=== PATIENT | female | born 1965 | race African-American/Black ===

== ENCOUNTER 2018-05-03 12:13 | Observation (INO) ==
--- NOTE | 2018-05-03 12:47 | ED ---
HPI General Chief complaint: Abdominal Pain Stated complaint: Abd pain Time Seen by Provider: 05/03/18 12:52 History of Present Illness HPI narrative: There is a 53-year-old female with history of HIV, hypertension and previous episode of "early appendicitis" presents the ED today for unbearable abdominal pain since this morning. Ports the pain woke her up at 7 AM with accompanying nausea and vomiting. The pain is locally located periumbilically and does not radiate. It is a 10 out of 10 pain. She had one bowel movement this morning which was normal. She reports associated fevers and chills but denies any chest pain, shortness of breath, urinary changes, diarrhea, or anorexia. She does not have any alleviating or worsening factors. She last ate last night with no issue. She has history of similar symptoms in the past. She was seen in the ER on April [address] scan revealed an abnormal appearance of the distal appendix that was concerning for early or mid tip appendicitis. The time surgery was offered however the patient refused and signed out AMA. She was given a prescription for Augmentin which she reports she finished. One week later on April 09 she was seen again for similar symptoms. During this visit she had a normal CBC and a CT abdomen pelvis which demonstrated no stranding or inflammation of the appendix. Related Data Home Medications Medication Instructions Recorded Confirmed dolutegravir [Tivicay] 10 mg PO DAILY 04/09/18 05/03/18 emtricitabine-tenofovir alafen 1 tab PO DAILY 04/09/18 05/03/18 [Descovy] lisinopril 5 mg PO DAILY 04/09/18 05/03/18 Allergies Allergy/AdvReac Type Severity Reaction Status Date / Time No Known Allergies Allergy Verified 05/03/18 12:37 Review of Systems Constitutional Reports chills and Reports fever(s) ENT Denies headache(s) and Denies sore throat Cardiovascular Denies chest pain, Denies syncope and Denies palpitations Respiratory Denies cough and Denies dyspnea Gastrointestinal Reports abdominal pain, Denies change in stool character, Denies diarrhea, Reports nausea and Reports vomiting Genitourinary Denies urinary frequency, Denies urinary hesitancy and Denies urinary urgency Musculoskeletal Denies myalgias and Denies arthralgias Integumentary/Breasts Denies rash Neurologic Denies numbness and Denies tingling PMFSH Medical History Medical History HTN (hypertension) (Acute) HIV disease (Acute) Heart murmur (Acute) Surgical History Surgical History H/O tubal ligation (Acute) Social History Social History Substance History: Active Abuse Second Hand Smoke Exposure: No Smoking Status: Never smoker How Often Do You Have a Drink Containing Alcohol: 2 to 4 times a month Recent Travel in [facility] within the Last 8 Weeks: No Recent Out of Country Travel within the Last 8 Weeks: No Substance Abuse Detail Marijuana: Substance Use Status: Active Immunization History Tetanus Immunization: Unsure Exam Narrative Exam Narrative: GENERAL: Mildly ill-appearing, anxious thin -Slov[place] female in no acute distress SKIN: Focused skin assessment warm/dry. HEAD: Atraumatic. Normocephalic. EYES: Pupils equal and round. No scleral icterus. No injection or drainage. ENT: No nasal bleeding or discharge. Mucous membranes pink and moist. NECK: Trachea midline. No JVD. CARDIOVASCULAR: Regular rate and rhythm. 3/6 holosystolic murmur heard best at the cardiac apex RESPIRATORY: No accessory muscle use. Clear to auscultation. Breath sounds equal bilaterally. GASTROINTESTINAL: Soft nondistended abdomen with tenderness to palpation of the periumbilical and suprapubic areas with rebound. No guarding MUSCULOSKELETAL: No obvious deformities. No clubbing. No cyanosis. No edema. NEUROLOGICAL: Awake and alert. No obvious cranial nerve deficits. Motor grossly within normal limits. Normal speech. PSYCHIATRIC: Appropriate mood and affect; insight and judgment normal. Course Initial Documented Vital Signs Temperature 97.5 F L 05/03/18 12:16 Pulse Rate 63 05/03/18 12:16 Respiratory Rate 16 05/03/18 12:16 Blood Pressure 221/84 H 05/03/18 12:16 Pulse Oximetry 95 05/03/18 12:16 Last Documented Vital Signs Temperature 97.5 F L 05/03/18 12:16 Pulse Rate 60 05/03/18 17:47 Respiratory Rate 16 05/03/18 17:47 Blood Pressure 168/72 H 05/03/18 17:47 Pulse Oximetry 99 05/03/18 17:47 Medical Decision Making MDM Narrative Medical decision making narrative: Ms. Monsalve is a 53-year-old female with history of HIV, hypertension, previous chronic "early appendicitis episode "who presented to the ED today from home complaining of severe abdominal pain and nausea as of this morning. Ports the pain woke her up out of bed and is 10 out of 10. She reports associated nausea and vomiting 3 times, once in the ED. She reports associated fevers and chills, but denied any chest pain, shortness of breath, lightheadedness, syncope, diarrhea, urinary changes, or anorexia. She had a similar episode in the past and has been seen twice in the ED for the symptoms. First time was on April 01 during which she had a CT scan that revealed possible early appendicitis. She was offered surgery at that time, however she refused and signed out AMA. She was instead given a prescription for Augmentin which she says she completed. On April 09 she returned to the ED for similar symptoms but had no evidence of appendicitis on laboratory or imaging studies. Upon arrival her vital signs were blood pressure of 221/84, temperature 97.5, HR 63, RR 16, pulse ox 97% on room air. Repeat blood pressure in her room was 209/87. On exam this patient was mildly ill-appearing and anxious however she was in no acute distress. Cardiac exam revealed a 3 out of 6 holosystolic murmur heard best at the cardiac apex. She says this is baseline. Poor exam was clear to auscultation bilaterally abdominal exam revealed a soft nondistended abdomen with tenderness to palpation of the periumbilical and suprapubic areas with rebound. There is no guarding. IV access was obtained and the patient was placed on cardiac monitoring. 4 mg IV morphine was given for pain management and 10 mg prochlorperazine IV was given for nausea and vomiting control. 2 mg IV hydralazine was given for blood pressure control. CBC, CMP, lipase, and UA were ordered. A CT abdomen pelvis with IV and oral contrast was ordered as well. She was placed on n.p.o. status pending laboratory and imaging evaluation. Results are as follows: CBC was without any leukocytosis or anemia or significant platelet abnormality CMP revealed mildly elevated creatinine of 1.03 decreased GFR 68 both are stable with prior studies. Potassium was also decreased at 3.2 Urinalysis revealed large occult blood with 18 RBCs, with no WBCs or bacteria. Culture was not indicated Lipase was within normal limits CT abdomen pelvis revealed prominent uterus with multiple leiomyomas and unremarkable gallbladder, appendix, and bladder. Due this patient is intractable abdominal pain and vomiting with no obvious source, patient will be admitted to hospitalist for further evaluation. Medical Screen Exam Complete: Yes Emergency Medical Condition: Yes Differential Diagnosis Differential Diagnosis: Sinus versus cholecystitis versus gastroenteritis versus colitis versus UTI versus nephrolithiasis Lab Data Result diagrams: 05/03/18 13:07 05/03/18 13:07 POC Results POC Urine Results Negative Lab Results 05/03/18 05/03/18 05/03/18 Range/Units 12:35 13:07 13:07 WBC 6.5 (4.0-11.0) th/mm3 RBC 4.04 (4.00-5.30) mil/mm3 Hgb 13.9 (11.6-15.3) gm/dL Hct 39.7 (35.0-46.0) % MCV 98.2 (80.0-100.0) fL MCH 34.3 H (27.0-34.0) pg MCHC 35.0 (32.0-36.0) % RDW 12.7 (11.6-17.2) % Plt Count 143 L (150-450) th/mm3 MPV 10.4 (7.0-11.0) fL Neut % (Auto) 65.7 (16.0-70.0) % Lymph % (Auto) 26.8 (9.0-44.0) % [place] % (Auto) 5.3 (0.0-8.0) % Eos % (Auto) 1.7 (0.0-4.0) % Baso % (Auto) 0.5 (0.0-2.0) % Neut # (Auto) 4.3 (1.8-7.7) th/mm3 Lymph # (Auto) 1.7 (1.0-4.8) th/mm3 [place] # (Auto) 0.3 (0.0-0.9) th/mm3 Eos # (Auto) 0.1 (0.0-0.4) th/mm3 Baso # (Auto) 0.0 (0.0-0.2) th/mm3 WBC Differential . Differential Comment Auto diff final Sodium 141 (136-145) meq/L Potassium 3.2 L (3.5-5.1) meq/L Chloride 107 (98-107) meq/L Carbon Dioxide 26.2 (21.0-32.0) meq/L Anion Gap 8 (5-15) meq/L BUN 16 (7-18) mg/dL Creatinine 1.03 H (0.50-1.00) mg/dL Estimated GFR 68 L (>89) mL/min Random Glucose 108 H (74-106) mg/dL Calcium 9.9 (8.5-10.1) mg/dL Total Bilirubin 0.6 (0.2-1.0) mg/dL AST 23 (15-37) U/L ALT 20 (10-53) U/L Alkaline Phosphatase 95 (45-117) U/L Total Protein 9.2 H (6.4-8.2) g/dL Albumin 4.5 (3.4-5.0) g/dL Lipase 76 (73-393) U/L Urine Color Yellow (Yellw/Straw) Urine Clarity Hazy H (Clear) Urine pH 6.0 (5.0-8.5) Ur Specific [place] 1.025 (1.002-1.035) Urine Protein 30 H (Neg-Trace) mg/dL Urine Glucose (UA) Negative (Negative) mg/dL Urine Ketones Negative (Negative) mg/dL Urine Occult Blood Large H (Negative) Urine Nitrate Negative (Negative) Urine Bilirubin Negative (Negative) Urine Urobilinogen Less than 2 (Less than 2) mg/dL Ur Leukocyte Esterase Negative (Negative) Urine RBC 18 H (0-3) /hpf Urine WBC 1 (0-5) /hpf Ur Squamous Epith Cells 2 (0-5) /hpf Urine Bacteria Rare H (None) /hpf Urine Mucus Many H (Occasional) /lpf Micro UA Comment Culture not ind Ur Microscopic Review Not Reportable Urine Culture Comments Culture not ind Imaging Data Radiologist's impression: Abdomen/Pelvis CT 05/03/18 12:57 CONCLUSION: 1. Prominent uterus with multiple leiomyomata. 2. Unremarkable bowel gas pattern. 3. Unremarkable gallbladder. Discharge Plan Discharge Disposition Patient Disposition: ED Admit(ED Internal Use Only) Discharge Order Discharge Orders: ED Use Only Admit Order (Routine); Ordered 05/03/18 Ordered By: Vishal Sanabria Discharge Details Diagnosis: Intractable nausea and vomiting, Abdominal pain, HIV (human immunodeficiency virus infection), Systolic murmur, Hypokalemia Physicians Team ED Provider: Vishal Sanabria Primary Care Provider: UNKNOWN, Attending Provider: Cuauhtemoc Faith Discharge Interventions Interventions: Vital Signs Last Done: 05/03/18 17:47 Status ED Status: Admitted Observation Patient
[2018-05-03] MEDS ORDERED: Morphine Inj 4 MG/ML Vial IV.PUSH ONE (12:57)
[2018-05-03] MEDS ORDERED: Diatrizoate Meglum/Diatrizoate Sod Liq 9 ML UDC PO ONE (12:57)
[2018-05-03] MEDS ORDERED: hydrALAZINE HCl Inj 20 MG/ML Vial IV.PUSH ONE (13:10)
[2018-05-03 13:40] LABS: Baso % (Auto) 0.5 % (0.0-2.0); Eos # (Auto) 0.1 th/mm3 (0.0-0.4); Eos % (Auto) 1.7 % (0.0-4.0); Hematocrit 39.7 % (35.0-46.0); Hemoglobin 13.9 gm/dL (11.6-15.3); Lymph # (Auto) 1.7 th/mm3 (1.0-4.8); Lymph % (Auto) 26.8 % (9.0-44.0); Mean Corpuscular Hemoglobin 34.3 pg (27.0-34.0); Mean Corpuscular Volume 98.2 fL (80.0-100.0); Mean Platelet Volume 10.4 fL (7.0-11.0); Mono # (Auto) 0.3 th/mm3 (0.0-0.9); Mono % (Auto) 5.3 % (0.0-8.0); Neut # (Auto) 4.3 th/mm3 (1.8-7.7); Neut % (Auto) 65.7 % (16.0-70.0); Platelet Count 143 th/mm3 (150-450); Red Blood Count 4.04 mil/mm3 (4.00-5.30); Red Cell Distribution Width 12.7 % (11.6-17.2); White Blood Count 6.5 th/mm3 (4.0-11.0)
[2018-05-03 14:02] LABS: Albumin 4.5 g/dL (3.4-5.0); Anion Gap 8 meq/L (5-15); Aspartate Aminotransferase 23 U/L (15-37); Blood Urea Nitrogen 16 mg/dL (7-18); Calcium 9.9 mg/dL (8.5-10.1); Carbon Dioxide 26.2 meq/L (21.0-32.0); Chloride 107 meq/L (98-107); Glomerular Filtration Rate 68 mL/min (>89); Glucose,Random 108 mg/dL (74-106); Lipase 76 U/L (73-393); Potassium 3.2 meq/L (3.5-5.1); Sodium 141 meq/L (136-145)
[2018-05-03 14:04] LABS: Bacteria,Urine Rare /hpf; Bilirubin,Urine Negative (Negative); Clarity,Urine Hazy (Clear); Color,Urine Yellow (Yellw/Straw); Glucose,Urine (UA) Negative (Negative); Leukocyte Esterase,Urine Negative (Negative); Mucus,Urine Many /lpf (Occasional); Nitrite,Urine Negative (Negative); Specific Gravity,Urine 1.025 (1.002-1.035); Squamous Epithelial Cell,Urine 2 /hpf (0-5)
[2018-05-03 14:05] LABS: Alanine Aminotransferase 20 U/L (10-53); Alkaline Phosphatase 95 U/L (45-117); Total Protein 9.2 g/dL (6.4-8.2)
--- NOTE | 2018-05-03 16:20 | CT ---
EXAM DATE: 05/03/2018 4:12 PM EST AGE/SEX: 53 years / Female INDICATIONS: Abdominal pain. CLINICAL DATA: This is the patient's initial encounter. Patient reports that signs and symptoms have been present for 1 day and indicates a pain score of 10/10. MEDICAL/SURGICAL HISTORY: Hypertension. HIV. Tubal ligation. ORAL CONTRAST: Partial prescribed oral contrast ingested. RADIATION DOSE: 7.14 CTDI (mGy) COMPARISON: [facility] [place], CT ABDOMEN & PELVIS W CONTRAST, 04/09/2018. . TECHNIQUE: Multiple contiguous axial images were obtained through the abdomen and pelvis following b olus infusion of 90 ml Omnipaque 350 (iohexol) nonionic water-soluble contrast as a single exam dos e. Partial prescribed oral contrast ingested. Using automated exposure control and adjustment of the mA and/or kV according to patient size, radiation dose was kept as low as reasonably achievable to o btain optimal diagnostic quality images. DICOM format image data is available electronically for rev iew and comparison. FINDINGS: Lower Lungs: The visualized lower lungs are clear. Liver: The liver has a homogeneous density without space-occupying lesion. There is no dilation of th e biliary tree. The gallbladder remains unremarkable. Spleen: Homogeneous density without enlargement. Pancreas: Unremarkable without mass or calcification. Kidneys: Normal in size and shape. No evidence of mass or hydronephrosis. Adrenal Glands: Unremarkable. Aorta: The aorta and proximal iliac vessels are grossly unremarkable without aneurysmal dilation. Bowel/Mesentery: No oral contrast was given limiting the sensitivity of the exam. The bowel loops ar e grossly unremarkable. The cecum and sigmoid colon have a normal configuration. Abdominal Wall: Intact. Retroperitoneum: No evidence of adenopathy in the retrocrural, para-aortic, or deep pelvic regions. Bladder: Contours are smooth. Reproductive Organs: Uterus remains mildly prominent and lobular with multiple ill-defined enhancing mass like areas consistent with leiomyomata. Inguinal: The inguinal region is unremarkable without evidence of adenopathy. Bony Structures: Unremarkable. CONCLUSION: 1. Prominent uterus with multiple leiomyomata. 2. Unremarkable bowel gas pattern. 3. Unremarkable gallbladder. Electronically signed by: David Jorgensen MD 05/03/2018 4:18 PM EST
[2018-05-03] MEDS ORDERED: Bisacodyl 10 MG Supp RECTAL PRN (16:43)
[2018-05-03] MEDS ORDERED: Morphine Sulfate Inj 2 MG/ML Vial IV.PUSH PRN (17:12)
--- NOTE | 2018-05-03 17:15 | P.HPIM ---
History of Present Illness History of Present Illness: And hepatitis C who presentsPatient is a 53-year- old female with past medical history of HIV with acute onset abdominal pain times 1 day. Patient reports being in usual state of health prior to development of symptoms on the morning of presentation to the hospital. Patient reports the pain is severe, 10/10, and located in epigastric region without radiation. No aggravating factors endorsed by patient. No alleviating factors other than pain medication received in the emergency department. Patient reports associated nausea, vomiting, chills. Review of systems negative for diarrhea, constipation, bright red blood per rectum, melena, hematemesis, fever, recent travel, abdominal bloating, rash over the abdominal region, trauma, chest pain, palpitations, or back pain. Of note patient does report that she recently used marijuana the night before presenting to the emergency department. Patient with past surgical history of tubal ligation in 1990 otherwise no abdominal surgeries. No new medications as per patient. No recent antibiotic use. Emergency department lab work unremarkable except for potassium 3.2. No white blood cell count. Lipase level normal. Patient with CT abdomen without acute finding. In past patient was noted to have appendicitis but no evidence of fat stranding a white blood cell count or fever during ED evaluation. Patient received antinausea medication but continues to have multiple episodes of emesis. Diagnosis (1) Abdominal pain: (2) HIV (human immunodeficiency virus infection): (3) Systolic murmur: (4) Marijuana smoker: (5) Hypertension: (6) Hypokalemia: (7) Emesis: (8) Cyclic vomiting syndrome: [facility] Medical History Medical History HTN (hypertension) (Acute) HIV disease (Acute) Heart murmur (Acute) Surgical History Surgical History H/O tubal ligation (Acute) Social History Social History Substance History: Active Abuse Second Hand Smoke Exposure: No Smoking Status: Never smoker How Often Do You Have a Drink Containing Alcohol: 2 to 4 times a month Recent Travel in [facility] within the Last 8 Weeks: No Recent Out of Country Travel within the Last 8 Weeks: No Substance Abuse Detail Marijuana: Substance Use Status: Active Immunization History Tetanus Immunization: Unsure Medications and Allergies Allergies Allergy/AdvReac Type Severity Reaction Status Date / Time No Known Allergies Allergy Verified 05/03/18 12:37 Home Medications Medication Instructions Recorded Confirmed Type dolutegravir [Tivicay] 10 mg PO DAILY 04/09/18 05/03/18 History emtricitabine-tenofovir alafen 1 tab PO DAILY 04/09/18 05/03/18 History [Descovy] lisinopril 5 mg PO DAILY 04/09/18 05/03/18 History Active Medications: Active Medications Al Hydroxide/Mg Hydroxide (Milk Of Jalen Lijonah) 30 ml PO Q12H PRN PRN Reason: Mild Constipation Bisacodyl (Dulcolax Supp) 10 mg RECTAL DAILY PRN PRN Reason: SEVERE CONSITIPATION Enalaprilat (Vasotec Inj) 2.5 mg IV.PUSH Q6H PRN PRN Reason: SBP>160, DBP>90 Enoxaparin Sodium (Lovenox Inj) 30 mg SQ Q24H [facility] Sodium Chloride (Ns Inj) 1,000 mls @ 100 mls/hr IV.CONT .Q10H BRISA Potassium Chloride (Kcl 20 Meq Premix Inj) 20 meq in 100 mls @ 50 mls/hr IV.SIG Q2H BRISA Stop: 05/03/18 20:59 Acetaminophen (Ofirmev Inj) 1,000 mg in 100 mls @ 400 mls/hr IV.SIG Q6H PRN PRN Reason: PAIN SCALE 1 TO 10 Lisinopril (Prinivil) 5 mg PO DAILY [facility] Metoclopramide HCl (Reglan Inj) 5 mg IV.PUSH Q6HR PRN; Protocol PRN Reason: NAUSEA OR VOMITING Morphine Sulfate (Morphine Inj) 2 mg IV.PUSH Q6HR PRN PRN Reason: BREAKTHROUGH PAIN Non-Formulary Medication (Dolutegravir [Tivicay]) 10 mg PO DAILY [facility] Non-Formulary Medication (Emtricitabine-Tenofovir Alafen [Descovy]) 1 tab PO DAILY [facility] Ondansetron HCl (Zofran Inj) 4 mg IV.PUSH Q6H PRN PRN Reason: NAUSEA OR VOMITING Senna/Docusate Sodium (Vannessa-Colace) 1 tab PO BID [facility] Sennosides (Senokot) 17.2 mg PO Q12H PRN PRN Reason: Moderate Constipation Sodium Chloride (Ns Flush) 2 ml IV.FLUSH PRN PRN PRN Reason: FLUSH AFTER USING IV ACCESS Sodium Chloride (Ns Flush) 2 ml IV.FLUSH BID [facility]ISA Sodium Chloride (Ns Flush) 2 ml IV.FLUSH PRN PRN PRN Reason: FLUSH AFTER USING IV ACCESS Physical Exam Vital signs: Last Vital Signs Temp 97.5 F L 05/03/18 12:16 Pulse 67 05/03/18 15:50 Resp 20 05/03/18 15:50 BP 177/73 H 05/03/18 14:10 Pulse Ox 100 05/03/18 15:50 Intake & Output 05/01/18 05/02/18 05/03/18 05/04/18 06:59 06:59 06:59 06:59 Weight 77.111 kg General: No acute distress, appears uncomfortable HEENT: EOMI Cardiovascular: Systolic murmur Respiratory: Clear to auscultation anteriorly and posteriorly Gastrointestinal: Soft, tender to palpation in epigastric region and left upper quadrant. Negative Adams sign. Positive bowel sounds. No rebound but guarding with deep palpation. Extremity: 2+ radial pulse. No edema lower extremity. No calf tenderness lower extremity Results Labs CBC & Chem 7: 05/03/18 13:07 05/03/18 13:07 Imaging Impressions Abdomen/Pelvis CT 05/03/18 12:57 CONCLUSION: 1. Prominent uterus with multiple leiomyomata. 2. Unremarkable bowel gas pattern. 3. Unremarkable gallbladder. Caprini VTE Risk Assessment Caprini VTE Risk Assessment: Moderate/High Risk (score >= 2) Caprini Risk Assessment Model: Point Value = 1 Point Value = 2 Point Value = 3 Point Value = 5 Age 41-60 Minor surgery BMI > 25 kg/m2 Swollen legs Varicose veins or History of unexplained or recurrent spontaneous Oral contraceptives or hormone replacement Sepsis (< 1 month) Serious lung disease, including pneumonia (< 1 month) Abnormal pulmonary function Acute myocardial infarction Congestive heart failure (< 1 month) History of inflammatory bowel disease Medical patient at bed rest Age 61-74 Arthroscopic surgery Major open surgery (> 45 min) Laparoscopic surgery (> 45 min) Malignancy Confined to bed (> 72 hours) Immobilizing plaster cast Central venous access Age >= 75 History of VTE Family history of VTE Factor V Leiden Prothrombin [id number] Lupus anticoagulant Anticardiolipin antibodies Elevated serum homocysteine Heparin-induced thrombocytopenia Other congenital or acquired thrombophilia Stroke (< 1 month) Elective arthroplasty Hip, pelvis, or leg fracture Acute spinal cord injury (< 1 month) Prophylaxis Regimen: Total Risk Factor Score Risk Level Prophylaxis Regimen 0-1 Low Early ambulation 2 Moderate Order ONE of the following: *Sequential Compression Device (SCD) *Heparin 5000 units SQ BID 3-4 Higher Order ONE of the following medications: *Heparin 5000 units SQ TID *Enoxaparin/Lovenox 40 mg SQ daily (WT < 150 kg, CrCl > 30 mL/min) *Enoxaparin/Lovenox 30 mg SQ daily (WT < 150 kg, CrCl > 10-29 mL/min) *Enoxaparin/Lovenox 30 mg SQ BID (WT < 150 kg, CrCl > 30 mL/min) AND/OR *Sequential Compression Device (SCD) 5 or more Highest Order ONE of the following medications: *Heparin 5000 units SQ TID (Preferred with Epidurals) *Enoxaparin/Lovenox 40 mg SQ daily (WT < 150 kg, CrCl > 30 mL/min) *Enoxaparin/Lovenox 30 mg SQ daily (WT < 150 kg, CrCl > 10-29 mL/min) *Enoxaparin/Lovenox 30 mg SQ BID (WT < 150 kg, CrCl > 30 mL/min) AND *Sequential Compression Device (SCD) Assessment and Plan (1) Abdominal pain: Code(s): R10.9 - Unspecified abdominal pain Status: Acute (2) HIV (human immunodeficiency virus infection): Code(s): B20 - Human immunodeficiency virus [HIV] disease Status: Acute (3) Systolic murmur: Code(s): R01.1 - Cardiac murmur, unspecified Status: Acute (4) Marijuana smoker: Code(s): F12.90 - Cannabis use, unspecified, uncomplicated Status: Acute (5) Hypertension: Code(s): I10 - Essential (primary) hypertension Status: Acute (6) Hypokalemia: Code(s): E87.6 - Hypokalemia Status: Acute (7) Emesis: Code(s): R11.10 - Vomiting, unspecified Status: Acute (8) Cyclic vomiting syndrome: Code(s): G43.A0 - Cyclical vomiting, not intractable Status: Acute Plan Patient is a 53-year-old female with past medical history of hypertension, HIV, and hepatitis C presenting with acute onset abdominal pain in the setting of elevated blood pressure and recent marijuana use concerning for cyclic vomiting syndrome versus hypertensive emergency. Gastroenterology: History of hepatitis C, abdominal pain -Given patient with symptoms shortly after smoking marijuana suspect that her nausea and vomiting may be symptoms of cyclic vomiting syndrome in the setting of marijuana use. IV fluid hydration supplemented with potassium for potassium of 3.2 CT abdomen reviewed. No acute findings Lipase negative for evidence of pancreatitis. No recent alcohol use endorsed per patient. No history of stones. History negative for autoimmune disorders. No trauma endorsed by patient. No evidence of ileus on imaging study. Pain control off from F 1 g every 6 hours with morphine 2 mg breakthrough Reglan for nausea Upon discharge from hospital patient should follow-up outpatient with PMD to arrange for colonoscopy for routine health maintenance screening. Patient does not appear to have a surgical abdomen at this time based on physical examination as well as no evidence of free air on imaging. We will not consult surgery Cardiology: Hypertension While n.p.o. we will use Vasotec 2.5 mg as needed as needed When tolerating p.o. diet continue lisinopril 5 mg p.o. daily Infectious disease: HIV Resume home medications when tolerating p.o. diet CODE STATUS: Full code DVT prophylaxis Disposition: Observation status. Anticipate discharge in 24 hours Diet: N.p.o. with fluids
[2018-05-03] MEDS: Sod Chloride 0.9% Inj 1,000 ML IV.CONT SCH (17:59)
[2018-05-03] MEDS: Potassium Chlor 20 mEq Premix 20 MEQ/100 ML PIGGYBACK IV.SIG SCH ×2 (17:59→21:42)
[2018-05-03] MEDS ORDERED: Enoxaparin Inj 30 MG/0.3 ML Syringe SQ SCH (18:00)
[2018-05-03] MEDS: Senna/Docusate Sodium 8.6/50 MG Tablet PO SCH (21:21)
[2018-05-04] MEDS: Sod Chloride 0.9% Inj 1,000 ML IV.CONT SCH (04:31)
[2018-05-04 07:59] LABS: Baso % (Auto) 0.6 % (0.0-2.0); Eos # (Auto) 0.1 th/mm3 (0.0-0.4); Eos % (Auto) 1.5 % (0.0-4.0); Hematocrit 34.4 % (35.0-46.0); Hemoglobin 11.6 gm/dL (11.6-15.3); Lymph # (Auto) 1.6 th/mm3 (1.0-4.8); Lymph % (Auto) 33.4 % (9.0-44.0); Mean Corpuscular HGB Conc 33.8 % (32.0-36.0); Mean Corpuscular Hemoglobin 32.9 pg (27.0-34.0); Mean Corpuscular Volume 97.3 fL (80.0-100.0); Mean Platelet Volume 10.5 fL (7.0-11.0); Mono # (Auto) 0.4 th/mm3 (0.0-0.9); Mono % (Auto) 7.7 % (0.0-8.0); Neut # (Auto) 2.8 th/mm3 (1.8-7.7); Neut % (Auto) 56.8 % (16.0-70.0); Platelet Count 118 th/mm3 (150-450); Red Blood Count 3.54 mil/mm3 (4.00-5.30); Red Cell Distribution Width 12.7 % (11.6-17.2); White Blood Count 4.9 th/mm3 (4.0-11.0)
[2018-05-04 08:05] LABS: INR 1.1 Ratio; Prothrombin Time 11.4 sec (9.8-11.6)
[2018-05-04] MEDS: Senna/Docusate Sodium 8.6/50 MG Tablet PO SCH (08:23)
[2018-05-04 08:42] LABS: Albumin 3.4 g/dL (3.4-5.0); Calcium 9.2 mg/dL (8.5-10.1); Carbon Dioxide 23.9 meq/L (21.0-32.0); Potassium 3.4 meq/L (3.5-5.1); Total Protein 6.8 g/dL (6.4-8.2)
[2018-05-04] MEDS ORDERED: DOLUTEGRAVIR 10 MG PO SCH ×2 (09:00)
[2018-05-04] MEDS ORDERED: PT:DESCOVY PO SCH (09:00)
[2018-05-04] MEDS ORDERED: EMTRICITABINE TENOFOVIR ALAFEN PO SCH (09:00)
[2018-05-04] MEDS ORDERED: Lisinopril 5 MG Tablet PO SCH (09:00)
--- NOTE | 2018-05-04 09:24 | P.PN ---
Subjective Interval history: Follow-up for abdominal pain, nausea/vomiting. Patient reports feeling much better today. She is requesting to eat. She denies any further nausea or vomiting. Denies any abdominal pain. She wants to go home. Denies any fevers or chills. She has no other medical complaints at this time. Physical Exam Vital signs: Vital Signs 05/03/18 12:16 05/03/18 12:36 05/03/18 13:30 Temperature 97.5 F L Pulse Rate 63 61 58 L Respiratory Rate 16 18 18 Blood Pressure 221/84 H 209/87 H 218/82 H Pulse Oximetry 95 100 100 05/03/18 14:10 05/03/18 15:50 05/03/18 17:47 Temperature Pulse Rate 69 67 60 Respiratory Rate 16 20 16 Blood Pressure 177/73 H 168/72 H Pulse Oximetry 99 100 99 05/03/18 20:00 05/04/18 00:00 05/04/18 04:00 Temperature 98.8 F 99.0 F 99.1 F Pulse Rate 63 64 66 Respiratory Rate 16 16 16 Blood Pressure 194/81 H 135/61 167/73 H Pulse Oximetry 98 99 100 05/04/18 08:00 Temperature Pulse Rate 61 Respiratory Rate 16 Blood Pressure 143/65 H Pulse Oximetry 98 Intake & Output 05/03/18 05/04/18 05/04/18 18:59 06:59 18:59 Intake Total 1200 / 1200 Balance 1200 / 1200 Weight 77.111 kg Intake: IV 1200 / 1200 NS Inj 1,000 ML @ 100 mls/hr IV 1000 / 1000 .CONT .Q10H BRISA Rx#:[id number] KCl 20 mEq Premix Inj 20 meq In 200 / 200 100 ml @ 50 mls/hr IV.SIG Q2H BRISA Rx#:[id number] Narrative: GENERAL: Well-nourished, well-developed pleasant middle-age female patient in [facility]. SKIN: Warm and dry. No rash. HEENT: Normocephalic. Atraumatic. Pupils equal and round. Mucous membranes pink and moist. CARDIOVASCULAR: Regular rate and rhythm. No murmur appreciated. RESPIRATORY: No accessory muscle use. Clear to auscultation. Breath sounds equal bilaterally. GASTROINTESTINAL: Abdomen soft, non-tender, nondistended. Normoactive bowel sounds x4. MUSCULOSKELETAL: No obvious deformities. Extremities without clubbing, cyanosis , or edema. NEUROLOGICAL: Awake and alert. No obvious cranial nerve deficits. Moving all extremities spontaneously. Normal speech. PSYCHIATRIC: Appropriate mood and affect; insight and judgment normal. Results - Labs CBC & Chem 7: 05/04/18 07:00 05/04/18 07:00 Laboratory Results - last 24 hr 05/03/18 05/03/18 05/03/18 12:35 13:07 13:07 WBC 6.5 RBC 4.04 Hgb 13.9 Hct 39.7 MCV 98.2 MCH 34.3 H MCHC 35.0 RDW 12.7 Plt Count 143 L MPV 10.4 Neut % (Auto) 65.7 Lymph % (Auto) 26.8 Sac % (Auto) 5.3 Eos % (Auto) 1.7 Baso % (Auto) 0.5 Neut # (Auto) 4.3 Lymph # (Auto) 1.7 Sac # (Auto) 0.3 Eos # (Auto) 0.1 Baso # (Auto) 0.0 WBC Differential . Differential Comment Auto diff final PT INR Sodium 141 Potassium 3.2 L Chloride 107 Carbon Dioxide 26.2 Anion Gap 8 BUN 16 Creatinine 1.03 H Estimated GFR 68 L Random Glucose 108 H Calcium 9.9 Total Bilirubin 0.6 Direct Bilirubin Indirect Bilirubin AST 23 ALT 20 Alkaline Phosphatase 95 Total Protein 9.2 H Albumin 4.5 Lipase 76 Urine Color Yellow Urine Clarity Hazy H Urine pH 6.0 Ur Specific [place] 1.025 Urine Protein 30 H Urine Glucose (UA) Negative Urine Ketones Negative Urine Occult Blood Large H Urine Nitrate Negative Urine Bilirubin Negative Urine Urobilinogen Less than 2 Ur Leukocyte Esterase Negative Urine RBC 18 H Urine WBC 1 Ur Squamous Epith Cells 2 Urine Bacteria Rare H Urine Mucus Many H Micro UA Comment Culture not ind Ur Microscopic Review Not Reportable Urine Culture Comments Culture not ind 05/04/18 05/04/18 05/04/18 07:00 07:00 07:00 WBC 4.9 RBC 3.54 L Hgb 11.6 D Hct 34.4 L MCV 97.3 MCH 32.9 MCHC 33.8 RDW 12.7 Plt Count 118 L MPV 10.5 Neut % (Auto) 56.8 Lymph % (Auto) 33.4 Sac % (Auto) 7.7 Eos % (Auto) 1.5 Baso % (Auto) 0.6 Neut # (Auto) 2.8 Lymph # (Auto) 1.6 Sac # (Auto) 0.4 Eos # (Auto) 0.1 Baso # (Auto) 0.0 WBC Differential . Differential Comment Auto diff final PT 11.4 INR 1.1 Sodium 144 Potassium 3.4 L Chloride 111 H Carbon Dioxide 23.9 Anion Gap 9 BUN 11 Creatinine 0.85 Estimated GFR 85 L Random Glucose 85 Calcium 9.2 Total Bilirubin 0.8 Direct Bilirubin 0.2 Indirect Bilirubin 0.6 AST 13 L ALT 15 Alkaline Phosphatase 66 Total Protein 6.8 D Albumin 3.4 D Lipase Urine Color Urine Clarity Urine pH Ur Specific [place] Urine Protein Urine Glucose (UA) Urine Ketones Urine Occult Blood Urine Nitrate Urine Bilirubin Urine Urobilinogen Ur Leukocyte Esterase Urine RBC Urine WBC Ur Squamous Epith Cells Urine Bacteria Urine Mucus Micro UA Comment Ur Microscopic Review Urine Culture Comments - Imaging Impressions Abdomen/Pelvis CT 05/03/18 12:57 CONCLUSION: 1. Prominent uterus with multiple leiomyomata. 2. Unremarkable bowel gas pattern. 3. Unremarkable gallbladder. Assessment and Plan - Assessment (1) Abdominal pain Code(s): R10.9 - Unspecified abdominal pain Status: Acute (2) HIV (human immunodeficiency virus infection) Code(s): B20 - Human immunodeficiency virus [HIV] disease Status: Acute (3) Systolic murmur Code(s): R01.1 - Cardiac murmur, unspecified Status: Acute (4) Marijuana smoker Code(s): F12.90 - Cannabis use, unspecified, uncomplicated Status: Acute (5) Hypertension Code(s): I10 - Essential (primary) hypertension Status: Acute (6) Hypokalemia Code(s): E87.6 - Hypokalemia Status: Acute (7) Emesis Code(s): R11.10 - Vomiting, unspecified Status: Acute (8) Cyclic vomiting syndrome Code(s): G43.A0 - Cyclical vomiting, not intractable Status: Acute - Plan Patient is a 53-year-old female with past medical history of hypertension, HIV, and hepatitis C presenting with acute onset abdominal pain in the setting of elevated blood pressure and recent marijuana use concerning for cyclic vomiting syndrome versus hypertensive emergency. Intractable Nausea/Vomiting/Abdominal Pain, Suspected Gastroenteritis: acute. Possible component of marijuana induced hyperemesis as symptoms began after marijuana use. -Supportive treatment with IV fluid hydration, antiemetics prn, pain control prn -CT abd reviewed, no acute findings -Lipase and LFTs wnl -Initially kept NPO, advanced to liquids/soft foods, patient tolerated well -no further nausea/vomiting/pain, patient requesting to be discharged, recommended outpatient follow up with GI Hypertension: chronic, not well controlled -IV Vasotec prn -Continue patient's lisinopril -BP improved with improvement of N/V/abdominal pain -stable for discharge HIV: chronic -Resume home medications -outpatient f/up Discharge Planning: Discharge patient to home Condition on discharge: Stable Regular Diet as tolerated Ad Yocasta activity Rx written: nohemy ODT prn Follow-up with primary care physician (1) Abdominal pain Qualifiers: Abdominal location: generalized Qualified Code(s): R10.84 - Generalized abdominal pain
== END 2018-05-04 10:10 | disposition home or self-care (01) ==
LOC: NEPC 12:13 → NEDA 12:13 → NEPHCDU 19:52
PROVIDERS: ADMIT Internal Medicine; ATTEND Internal Medicine